=== PATIENT | male | born 1995 | race Caucasian/White ===

== ENCOUNTER 2018-01-15 10:44 | Emergency (ER) | payer OTHER ==
[2018-01-15 10:56] VITALS: BP 116/67; PULSE 69; TEMP 98.6; BMI 21.6
--- NOTE | 2018-01-15 11:48 | PDOC ---
History of Present Illness - General Chief Complaint: Bite Stated Complaint: DOG BITE Time Seen by Provider: 01/15/18 11:17 History Source: Patient Exam Limitations: No Limitations - History of Present Illness Initial Comments: 01/15/18 11:38 states stepped on dog's tail / pitbull which caused dog to bite his right foot. States washed with alcohol, peroxide, and then put Neosporin on wound . 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 No fevers but pain is worsening. Dog is pet and vaccines UTD. 01/15/18 11:40 Occurred: reports: other (2 days ago) Severity: reports: moderate Pain Location: reports: lower extremity (right foot ) Modifying Factors: improves with: None Past History - Travel Traveled outside of the country in the last 30 days: No Close contact w/someone who was outside of country & ill: No - Past Medical History Allergies/Adverse Reactions: Allergies Allergy/AdvReac Type Severity Reaction Status Date / Time No Known Allergies Allergy Verified 01/15/18 10:51 Home Medications: Ambulatory Orders Amox-Tr/K Cl [Augmentin 875Mg Tablet] 1 tab PO BID #20 tablet 01/15/18 COPD: No Other medical history: DENIES. - Suicide/Smoking/Psychosocial Hx Smoking History: Never smoked Have you smoked in the past 12 months: Yes Information on smoking cessation initiated: No Hx Alcohol Use: Yes Substance Use Type: Alcohol, Marijuana Review of Systems - Review of Systems Able to Perform ROS?: Yes Is the patient limited Telugu proficient: Yes Constitutional: Yes: Symptoms Reported, See HPI. No: Malaise Musculoskeletal: Yes: Symptoms Reported, See HPI, Joint Pain, Joint Swelling Integumentary: Yes: Symptoms Reported, See HPI, Bruising Neurological: Yes: Symptoms reported, See HPI All Other Systems: Reviewed and Negative *Physical Exam - Vital Signs Last Vital Signs Temp Pulse Resp BP Pulse Ox 98.6 F 69 19 116/67 97 01/15/18 10:51 01/15/18 10:51 01/15/18 10:51 01/15/18 10:51 01/15/18 10:51 - Physical Exam General Appearance: Yes: Nourished, Appropriately Dressed, Apparent Distress, Moderate Distress HEENT: positive: JOAQUIN, Normal ENT Inspection, TMs Normal, Pharynx Normal Neck: positive: Supple. negative: Tender Respiratory/Chest: positive: Lungs Clear, Normal Breath Sounds Gastrointestinal/Abdominal: positive: Soft Extremity: positive: Normal Capillary Refill, Normal Range of Motion, Tender, Other (multiple puncture wounds, with some mild erythema but primarily ecchymoses to midfoot extending to toes. Has no purulent drainage, no fluctuance , no evidence of cellulitis. Full range of motion at toes but flexion and extension to toes reproduces pain along calf consistent with tenderness pain. 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 Soaked and dressed with bacitracin ointment, cast shoe provided, and will start on Augmentin 875 mg twice a day *DC/Admit/Observation/Transfer Diagnosis at time of Disposition: Dog bite of foot Qualifiers: Encounter type: initial encounter Laterality: right Qualified Code(s): S91.351A - Open bite, right foot, initial encounter - Discharge Dispostion Disposition: HOME Condition at time of disposition: Stable Admit: No - Prescriptions Prescriptions: Amox-Tr/K Cl [Augmentin 875Mg Tablet] 1 tab PO BID #20 tablet - Referrals Referrals: Priti Mendoza MD [Primary Care Provider] - - Patient Instructions Printed Discharge Instructions: How to Care for a Domestic Animal Bite Additional Instructions: Rest, keep area elevated. Avoid strenuous activity or exercise until wound is healed Use hot soaks to area to bring more blood to the surface and encourage drainage May change dressings as needed to keep clean - Allow water from shower to wash area thoroughly for 2-3 minutes, and pat dry upon exit of shower and replace dressing. Change his dressing daily until the wound is completely healed. May use Tylenol or Motrin for mild pain relief Use stronger medications as directed and prescribed Continue all medications as prescribed Followup with private physician in 2-3 days for wound check Return to emergency Department for worsening swelling, pain, redness, fevers as needed - Post Discharge Activity Forms/Work/School Notes: Back to Work
== END 2018-01-15 12:36 | disposition home or self-care (01) ==
LOC: JERFT 10:44
DX: S91.351A Open bite, right foot, initial encounter (principal); W54.0XXA Bitten by dog, initial encounter; Y93.89 Activity, other specified; Y99.8 Other external cause status; Y92.038 Other place in apartment as the place of occurrence of the external cause
CPT/HCPCS: 73630-TC-RT-FY; 99281-25

== ENCOUNTER 2018-09-28 14:50 | Emergency (ER) | payer OTHER ==
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
[2018-09-28 15:01] VITALS: BP 115/73; PULSE 89; TEMP 97.7; BMI 21.6
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
== END 2018-09-28 15:37 | disposition home or self-care (01) ==
LOC: JERFT 14:50
DX: S63.601A Unspecified sprain of right thumb, initial encounter (principal); Y04.0XXA Assault by unarmed brawl or fight, initial encounter; Y93.89 Activity, other specified; Y92.89 Other specified places as the place of occurrence of the external cause; Y99.8 Other external cause status
CPT/HCPCS: 73140-TC-RT-FY; 99281-25

== ENCOUNTER 2018-12-05 17:40 | Emergency (ER) | payer OTHER ==
--- NOTE | 2018-12-05 17:54 | PDOC ---
Rapid Medical Evaluation Chief Complaint: Laceration Time Seen by Provider: 12/05/18 17:53 Medical Evaluation: Allergies Allergy/AdvReac Type Severity Reaction Status Date / Time No Known Allergies Allergy Verified 09/28/18 15:00 12/05/18 17:53 I have performed a brief in-person evaluation of this patient. The patient presents with a chief complaint of: laceration to right 3rd finger today approximately 2pm. Tetanus vaccine up to date , 5 years. Pertinent physical exam findings: NAD even and unlabored breathing right 3rd digit with dressing in place I have ordered the following: The patient will proceed to the ED for further evaluation. Discharge Disposition - Diagnosis Laceration - Discharge Dispostion Condition at time of disposition: Stable - Referrals - Patient Instructions - Post Discharge Activity
[2018-12-05 17:55] VITALS: BP 124/75; PULSE 81; TEMP 98.4; BMI 20.9
--- NOTE | 2018-12-05 18:31 | PDOC ---
History of Present Illness - General Chief Complaint: Laceration Stated Complaint: LACERATION RIGHT THIRD FINGER Time Seen by Provider: 12/05/18 17:53 - History of Present Illness Initial Comments: 12/05/18 18:24 23-year-old male presents for evaluation of a laceration on his right middle finger which occurred at work while cutting vegetables. He is current on tetanus Past History - Past Medical History Allergies/Adverse Reactions: Allergies Allergy/AdvReac Type Severity Reaction Status Date / Time No Known Allergies Allergy Verified 09/28/18 15:00 Home Medications: Ambulatory Orders NK [No Known Home Medication] 09/28/18 COPD: No - Immunization History Immunization Up to Date: No - Suicide/Smoking/Psychosocial Hx Smoking History: Never smoked Have you smoked in the past 12 months: No Information on smoking cessation initiated: No Hx Alcohol Use: No Drug/Substance Use Hx: No Substance Use Type: Alcohol, Marijuana Review of Systems - Review of Systems Integumentary: Yes: See HPI *Physical Exam - Vital Signs Last Vital Signs Temp Pulse Resp BP Pulse Ox 98.4 F 81 18 124/75 100 12/05/18 17:53 12/05/18 17:53 12/05/18 17:53 12/05/18 17:53 12/05/18 17:53 - Physical Exam Comments: 12/05/18 18:25 Right middle finger skin color and temperature are normal. There is a subcentimeter laceration on the volar aspect of the finger distal to the DIPJ. Exposing subcutaneous fat. FDS and FDP work independently there are no gross sensorimotor deficits. Moderate Sedation - Procedure Monitoring Vital Signs: Procedure Monitoring Vital Signs Temperature 98.4 F 12/05/18 17:53 Pulse Rate 81 12/05/18 17:53 Respiratory Rate 18 12/05/18 17:53 Blood Pressure 124/75 12/05/18 17:53 O2 Sat by Pulse Oximetry (%) 100 12/05/18 17:53 Medical Decision Making - Medical Decision Making 12/05/18 18:25 Procedure note: Under aseptic technique a digital block was introduced using 6 mL of 1% lidocaine without epinephrine. Wound was copiously irrigated. The wound was explored down to its base in a bloodless field there was no foreign body identified. Again copiously irrigated and sterilely prepped using 5-0 nylon the wound was closed with 3 simple interrupted sutures a dry sterile dressing was placed. This was tolerated well. *DC/Admit/Observation/Transfer Diagnosis at time of Disposition: Laceration - Discharge Dispostion Disposition: HOME Condition at time of disposition: Stable Decision to Admit order: No - Referrals Referrals: Yaron Zimmerman MD [Staff Physician] - - Patient Instructions Printed Discharge Instructions: DI for Laceration Repair Additional Instructions: Keep the dressing on for the next 48 hours. After 40 hours or may remove the dressing and wash her hand with soap and water and leave the area open to air. Cover the area if you are working. Suture removal in 10 days in the emergency room weight and follow-up with hand surgery in 2-3 days for wound check and further evaluation. Return to the emergency room if he have any further issues such as drainage redness swelling or increasing pain to the area of the laceration. These may be signs of infection. - Post Discharge Activity
== END 2018-12-05 20:43 | disposition home or self-care (01) ==
LOC: JERFT 17:40
PROC: 0HQFXZZ Repair Right Hand Skin, External Approach (ICD-10-PCS; principal; 2018-12-05)
DX: S61.212A Laceration without foreign body of right middle finger without damage to nail, initial encounter (principal); W26.0XXA Contact with knife, initial encounter; Y93.G1 Activity, food preparation and clean up; Y92.511 Restaurant or cafe as the place of occurrence of the external cause; Y99.0 Civilian activity done for income or pay
CPT/HCPCS: 12001; 99281-25

== ENCOUNTER 2018-12-14 23:20 | Emergency (ER) | payer OTHER ==
[2018-12-14 23:24] VITALS: BP 118/70; PULSE 64; TEMP 97.9; BMI 21.6
--- NOTE | 2018-12-14 23:53 | PDOC ---
Suture Removal/Wound Check HPI - History of Present Illness Chief Complaint: Suture/Staple Removal(Here) Stated Complaint: SUTURE REMOVAL Time Seen by Provider: 12/14/18 23:51 History Source: Yes: Patient Exam Limitations: Yes: No Limitations Date of Last ED visit: 12/05/18 - Previous ED Treatment Type of procedure performed on last visit: Yes: Laceration Repair Tetanus Immunization: Yes: Up to Date Antibiotics Prescribed: No - Onset of Previous Treatment Date of Occurence: 12/05/18 Past History - Past Medical History Allergies/Adverse Reactions: Allergies Allergy/AdvReac Type Severity Reaction Status Date / Time No Known Allergies Allergy Verified 12/14/18 23:24 Home Medications: Ambulatory Orders NK [No Known Home Medication] 09/28/18 COPD: No - Immunization History Immunization Up to Date: No - Suicide/Smoking/Psychosocial Hx Smoking History: Never smoked Have you smoked in the past 12 months: No Information on smoking cessation initiated: No Hx Alcohol Use: No Drug/Substance Use Hx: No Substance Use Type: Alcohol, Marijuana Suture Removal/Wound Check PE - Physical Exam Laceration/Wound Check Symptoms: denies: Fever, Chills, Redness, Discharge, Bleeding, Numbness, Weakness *Review of Systems - Review of Systems Able to Perform ROS?: Yes Constitutional: No: Chills, Fever Respiratory: No: Cough, Shortness of Breath, Wheezing Cardiac (ROS): No: Chest Pain, Palpitations ABD/GI: No: Diarrhea, Nausea, Vomiting : No: Burning, Dysuria Musculoskeletal: No: Back Pain, Joint Pain Integumentary: No: Erythema, Rash Neurological: No: Headache, Dizziness *Physical Exam - Vital Signs Last Vital Signs Temp Pulse Resp BP Pulse Ox 97.9 F 64 18 118/70 100 12/14/18 23:22 12/14/18 23:22 12/14/18 23:22 12/14/18 23:22 12/14/18 23:22 - Physical Exam Comments: 12/15/18 00:00 Constitutional: Well-nourished, Well-developed, appearing stated age. HEENT: head is normocephalic, atraumatic. EOMI. PERRLA. Neck: supple. Full ROM. Heart: regular rhythm. no murmurs, rubs or gallops. Lungs: clear to auscultation bilaterally. no crackles, rhonchi or wheezing. no stridor. Abdomen: soft, nontender. normal bowel sounds. no rebound, guarding, masses. Extremities: peripheral pulses intact. no lower extremity edema. Neurological: CN 2-12 grossly intact. moves all four extremities. Psych: awake, alert, oriented x3. follows commands. answers questions appropriately. Skin: 3 sutures to right middle finger ventral DIP. no surrounding erythema, no discharge, no pain with extension/flexion. capillary refill<2 seconds. neurovascualrly intact. Moderate Sedation - Procedure Monitoring Vital Signs: Procedure Monitoring Vital Signs Temperature 97.9 F 12/14/18 23:22 Pulse Rate 64 12/14/18 23:22 Respiratory Rate 18 12/14/18 23:22 Blood Pressure 118/70 12/14/18 23:22 O2 Sat by Pulse Oximetry (%) 100 12/14/18 23:22 Medical Decision Making - Medical Decision Making 12/14/18 23:59 23 year old male presented to ED for suture removal. Pt has no complaints. Initial Vital Signs Temp Pulse Resp BP Pulse Ox 97.9 F 64 18 118/70 100 12/14/18 23:22 12/14/18 23:22 12/14/18 23:22 12/14/18 23:22 12/14/18 23:22 Afebrile. No tachycardia. No tachypnea. Normal BP. No hypoxia on room air. 3 sutures were removed from the middle right finger at the ventral DIP. No surrounding erythema, no discharge, well approximated. Pt discharged. *DC/Admit/Observation/Transfer Diagnosis at time of Disposition: Visit for suture removal - Discharge Dispostion Disposition: HOME Condition at time of disposition: Improved Decision to Admit order: No - Referrals - Patient Instructions Printed Discharge Instructions: DI for Suture Removal Additional Instructions: Follow up with your primary care doctor in 3-4 days. Return to the Emergency Department for increasing pain, fever, chills, vomiting , redness at the suture site, color changes to the finger or any other new, worsening or concerning symptoms. Take Tylenol over the counter for pain, take as advised on label. - Post Discharge Activity
--- NOTE | 2018-12-15 | PDOC ---
Attending Attestation - HPI HPI: 12/15/18 00:00 The patient is a 23-year-old male, with no past medical history, who presents to the ED for suture removal. The patient was seen in the ED on 12/05 with a RT middle finger laceration. He states he sustained the wound while cutting vegetables at work. Tetanus is up to date. Wound is healing well. The patient denies having any other injuries or symptoms. Allergies: NKA. - Physicial Exam PE: 12/15/18 00:02 Agree with resident exam. <Ana Velez - Last Filed: 12/15/18 00:00> - Resident Resident Name: Natalie Rodriguez - ED Attending Attestation I have performed the following: I have examined & evaluated the patient, The case was reviewed & discussed with the resident, I agree w/resident's findings & plan - Medical Decision Making 12/15/18 00:15 23-year-old male for suture removal 3 intact sutures removed by the emergency medicine resident <Ju Fuentes - Last Filed: 12/15/18 00:18> Attestations - Attestations 12/15/18 00:02 Documentation prepared by Ana Velez, acting as medical research associate for Ju Fuentes DO. <Ana Velez - Last Filed: 12/15/18 00:00>
== END 2018-12-15 00:22 | disposition home or self-care (01) ==
LOC: JER 23:20
DX: Z48.817 Encounter for surgical aftercare following surgery on the skin and subcutaneous tissue (principal); Z48.02 Encounter for removal of sutures
CPT/HCPCS: 99281-25

== ENCOUNTER 2019-06-22 15:52 | Emergency (ER) | payer OTHER ==
[2019-06-22 16:13] VITALS: BP 118/73; PULSE 91; TEMP 98.6; BMI 20.9
[2019-06-22] MEDS ORDERED: ALBUTEROL SO4 2.5/IPRATROPIUM 0.5 INH SOL 3 ML VIAL.NEB. NEB ONE ×2 (16:13→16:56)
--- NOTE | 2019-06-22 16:13 | PDOC ---
Rapid Medical Evaluation Chief Complaint: Cold Symptoms Time Seen by Provider: 06/22/19 16:10 Medical Evaluation: Allergies Allergy/AdvReac Type Severity Reaction Status Date / Time No Known Allergies Allergy Verified 12/14/18 23:24 06/22/19 16:10 23 year old male with cough and chest congestion worsening for the last 6 days. denies recent travel. + one episode of hemoptysis PE: patient alert ox3, + moist cough, breath sounds clear A: URI P: xray duoneb Discharge Disposition - Diagnosis URI (upper respiratory infection) Qualifiers: URI type: unspecified URI Qualified Code(s): J06.9 - Acute upper respiratory infection, unspecified - Referrals - Patient Instructions - Post Discharge Activity
--- NOTE | 2019-06-22 17:15 | PDOC ---
History of Present Illness - General Chief Complaint: Cold Symptoms Stated Complaint: BLOOD IN SPUTUM Time Seen by Provider: 06/22/19 16:10 - History of Present Illness Initial Comments: 06/22/19 17:14 CHIEF COMPLAINT: cough HISTORY OF PRESENT ILLNESS: 23 yo M presents to [facility] with worsening productive cough and congestion x 6 days. Patient reports one episode of blood tinged sputum. Patient reports that during the first three days of onset of symptoms he did have a fever but he no longer has a fever, just a persistent cough. Patient states he is unable to sleep due to coughing and discomfort. Patient has taken Nyquil without relief. No recent travel or sick contacts. PAST MEDICAL HISTORY: Denies past medical history FAMILY HISTORY: Denies SOCIAL HISTORY: Denies tobacco, alcohol, illicit drug use. SURGICAL HISTORY: Denies ALLERGIES: No known drug allergies REVIEW OF SYSTEMS General/Constitutional: Fever for three days, none now. Denies weakness, weight change. HEENT: Denies change in vision. Denies ear pain or discharge. Denies sore throat. Cardiovascular: Denies chest pain or shortness of breath. Respiratory: Worsening productive cough x 6 days. Gastrointestinal: Denies nausea, vomiting, diarrhea or constipation. Denies rectal bleeding. Genitourinary: Denies dysuria, frequency, or change in urination. Musculoskeletal: Denies joint or muscle swelling or pain. Denies neck or back pain. Skin and breasts: Denies rash or easy bruising. Neurologic: Denies headache, vertigo, loss of consciousness, or loss of sensation. Psychiatric: Denies depression or anxiety. PHYSICAL EXAM General Appearance: Well-appearing, appropriately dressed. No apparent distress , no intoxication. HEENT: EOMI, PERRLA, normal ENT inspection, normal voice, TMs normal, pharynx normal. No conjunctival pallor. No photophobia, scleral icterus. Neck: Supple. Trachea midline. No tenderness, rigidity, carotid bruit, stridor , lymphadenopathy, or thyromegaly. Respiratory/Chest: Productive cough elicited upon deep inspiration. Lungs CTAB. No shortness of breath, chest tenderness, respiratory distress, accessory muscle use. No crackles, rales, rhonchi, stridor, wheezing, dullness Cardiovascular: RRR. S1, S2. No JVD, murmur, bradycardia, tachycardia. Vascular Pulses: Dorsalis-Pedis (R): 2+, Dorsalis-Pedis (L): 2+ Gastrointestinal/Abdominal: Normal bowel sounds. Abdomen soft, non-distended. No tenderness or rebound tenderness. No organomegaly, pulsatile mass, guarding , hernia, hepatomegaly, splenomegaly. Lymphatic: No adenopathy, tenderness. Musculoskeletal/Extremities: Normal inspection. FROM of all extremities, normal capillary refill. Pelvis Stable. No CVA tenderness. No tenderness to extremities, pedal edema, swelling, erythema or deformity. Integumentary: Appropriate color, dry, warm. 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 Fully oriented, alert. Appropriate mood/affect. Motor strength 5/5. No appreciable EOM palsy, facial droop or sensory deficit. 06/22/19 17:23 Past History - Past Medical History Allergies/Adverse Reactions: Allergies Allergy/AdvReac Type Severity Reaction Status Date / Time No Known Allergies Allergy Verified 06/22/19 16:11 Home Medications: Ambulatory Orders Azithromycin [Zithromax 250mg Tablets -] 250 mg PO UTDICT #6 tab 06/22/19 Benzonatate [Tessalon Pearls -] 100 mg PO TID #21 capsule 06/22/19 COPD: No - Immunization History Immunization Up to Date: No - Suicide/Smoking/Psychosocial Hx Smoking History: Current every day smoker Have you smoked in the past 12 months: No Number of Cigarettes Smoked Daily: 5 Information on smoking cessation initiated: No Hx Alcohol Use: No Drug/Substance Use Hx: No Substance Use Type: Alcohol, Marijuana *Physical Exam - Vital Signs Last Vital Signs Temp Pulse Resp BP Pulse Ox 98.6 F 91 H 18 118/73 98 06/22/19 16:11 06/22/19 16:11 06/22/19 16:11 06/22/19 16:11 06/22/19 16:11 ED Treatment Course - Medications Given in the ED: ED Medications Discontinued Medications Generic Name Dose Route Start Last Admin Trade Name Freq PRN Reason Stop Dose Admin Albuterol/Ipratropium 1 amp 06/22/19 16:13 06/22/19 16:58 Duoneb - NEB 06/22/19 16:14 1 amp ONCE ONE Administration Medical Decision Making - Medical Decision Making 06/22/19 17:24 23 yo M presents to [facility] with worsening productive cough and congestion x 6 days. -CXR -nebulizer will rx abx, educated patient on antibiotic resistant and only to take if symptoms persist for another 3-4 days. Advised patient to take medication as prescribed and follow up with PCP if symptoms persist past 7-10 days]. Advised patient of signs and symptoms for return to ED. Patient verbalized understanding and agrees to plan. *DC/Admit/Observation/Transfer Diagnosis at time of Disposition: URI (upper respiratory infection) Qualifiers: URI type: unspecified URI Qualified Code(s): J06.9 - Acute upper respiratory infection, unspecified - Discharge Dispostion Disposition: HOME Condition at time of disposition: Stable Decision to Admit order: No - Prescriptions Prescriptions: Azithromycin [Zithromax 250mg Tablets -] 250 mg PO UTDICT #6 tab Benzonatate [Tessalon Pearls -] 100 mg PO TID #21 capsule - Referrals Referrals: Ryder Burgos MD [Staff Physician] - - Patient Instructions Printed Discharge Instructions: DI for Viral Upper Respiratory Infection -- Adult Additional Instructions: Please take medications as prescribed. As discussed, take antibiotics ONLY if symptoms persist for another few days. If you develop new fever, persistent vomiting, diarrhea, or any new or worsening symptoms, please return to the ER. - Post Discharge Activity Forms/Work/School Notes: Back to Work
== END 2019-06-22 17:37 | disposition home or self-care (01) ==
LOC: JERFT 15:52
PROC: 3E0F7GC Introduction of Other Therapeutic Substance into Respiratory Tract, Via Natural or Artificial Opening (ICD-10-PCS; principal; 2019-06-22)
DX: J06.9 Acute upper respiratory infection, unspecified (principal)
CPT/HCPCS: 71046-TC-FY; 99281-25

== ENCOUNTER 2022-07-17 22:36 | Emergency (ER) | payer OTHER ==
[2022-07-17 22:42] VITALS: BP 107/77; PULSE 87; RESP 18; TEMP 98; BMI 21.6
[2022-07-18] MEDS ORDERED: LIDOCAINE HCL 2% JELLY 10 ML CARTRIDGE PR ONE (00:35)
[2022-07-18] MEDS ORDERED: HYDROCORTISONE 2.5% TOPICAL CREAM 30 GM TUBE TP ONE (01:00)
[2022-07-18] MEDS ORDERED: LIDOCAINE HCL 2% JELLY 11 ML TP ONE ×2 (01:28→01:30)
== END 2022-07-18 01:30 | disposition home or self-care (01) ==
LOC: JER 22:36
DX: K64.9 Unspecified hemorrhoids (principal); K62.5 Hemorrhage of anus and rectum
CPT/HCPCS: 99283-25